=== PATIENT | male | born 1980 | race Caucasian/White ===

== ENCOUNTER 2017-04-19 22:12 | Emergency (ER) | payer MEDICAID, OTHER ==
[2017-04-19 22:20] VITALS: BP 134/98; PULSE 98; RESP 18; TEMP 98.2; O2SAT 93
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
[2017-04-19] MEDS ORDERED: CEPHALEXIN 500 MG CAP PO ONE (22:24)
== END 2017-04-19 22:57 | disposition home or self-care (01) ==
DX: S81.802A Unspecified open wound, left lower leg, initial encounter (principal); F17.200 Nicotine dependence, unspecified, uncomplicated; X58.XXXA Exposure to other specified factors, initial encounter